=== PATIENT | male | born 1975 | race African-American/Black ===

== ENCOUNTER 2017-07-09 19:19 | Observation (INO) | payer BC ==
[2017-07-09 19:45] LABS: BASOPHILS # (AUTO) 0.1 X10^3/uL (0.0-0.1); BASOPHILS % (AUTO) 1.4 % (0.2-1.0); EOSINOPHILS # (AUTO) 0.1 x10^3/uL (0.0-0.2); EOSINOPHILS % (AUTO) 0.8 % (0.9-2.9); HEMATOCRIT 38.2 % (42.0-54.0); HEMOGLOBIN 12.9 g/dL (13.5-18.0); LYMPHOCYTES # (AUTO) 2.6 X10^3/uL (1.3-2.9); LYMPHOCYTES % (AUTO) 39.1 % (21.0-51.0); MEAN CORPUSCULAR HGB CONC 33.7 g/dL (33.0-35.0); MEAN CORPUSCULAR VOLUME 89.1 fL (80.0-100.0); MEAN PLATELET VOLUME 8.8 fL (7.4-11.0); MONOCYTES # (AUTO) 0.5 x10^3/uL (0.3-0.8); MONOCYTES % (AUTO) 8.1 % (0.0-13.0); NEUTROPHILS # (AUTO) 3.3 x10^3/uL (2.2-4.8); NEUTROPHILS % (AUTO) 50.6 % (42.0-75.0); PLATELET COUNT 233 X10^3/uL (150.0-450.0); RED BLOOD COUNT 4.29 X10^6/uL (4.7-6.0); RED CELL DISTRIBUTION WIDTH 14.3 % (11.6-16.5); WHITE BLOOD COUNT 6.6 X10^3/uL (3.6-10.0)
--- NOTE | 2017-07-09 19:47 | DR.GENAD ---
HPI - PCP Primary Care Physician: SERJIO - HPI Comment HPI Comment: CHEST PAIN GETTING WORSE TONIGHT. NO FEVER. - Complaint/Symptoms Chief Complaint Doctors Comments: INCREASING SOB AND CHERST PAIN TIMES 3 DAYS. DENIES PRODUCTIVE COUGH. Chief Complaint:: CP AND SOB FOR 3 DAYS - Nurses notes reviewed Nurses Notes Review: Yes - Source History Provided: Patient - Mode of Arrival Mode of Arrival: EMS - Timing Onset of Chief Complaint: 07/06/17 Came on: Suddenly - Duration Duration: Constant Duration: Days - Severity Severity: Moderate PMH - PMH Past Medical History: Yes Past Medical History: Hypertension Past Surgical History: Yes Past Surgical History Comment: BACK - Family History History of Family Medical Conditions: Yes Family Medical History: ID, Sudden Cardiac - Social History Type of Tobacco Use: None Does any household member use tobacco: No Alcohol Use: None Do you use any recreational Drugs:: No Lives With: Family Lives Where: Home - infectious screening In the last 2 months have you had wt loss of >10#?: NO Have you had fever, night sweats or hemotysis?: No Have you traveled outside the country in the last 6 months?: No Isolation: Standard ROS - Review of Systems Constitutional: Weakness, Fatigue. negative: Chills, Fever Eyes: No Symptoms Reported. negative: Eye Pain, Discharge ENTM: No Symptoms Reported. negative: Ear Discharge, Nose Discharge, Nose Congestion, Throat Pain Respiratoy: Short of Breath. negative: Productive Cough, Non-Productive Cough, Wheezing, Hemoptysis Cardiovascular: Chest Pain. negative: Edema, Palpitations Gastrointestinal/Abdominal: Abdominal Pain, Nausea. negative: Vomiting Genitourinary: No Symptoms Reported. negative: Dysuria, Frequency, Hematuria Neurological: Weakness. negative: Headache, Dizziness Musculoskeletal: Muscle Pain Integumentary: No Symptoms Reported Hematologic/Lymphatic: No Symptoms Reported Endocrine: No Symptoms Reported All Other Systems: Reviewed and Negative PE - Vital Signs Vitals: Temperature 98.3 F Pulse Rate 65 Respiratory Rate 18 Blood Pressure 126/89 O2 Sat by Pulse Oximetry 99 - General Limitations: No Limitations General Appearance: Alert - Head Head Exam: Normal Inspection - Eyes Eye exam: Normal Appearance - ENT ENT Exam: Normal External Ear Exam External Ear Exam: Normal External Inspection TM/Canal Exam: Bilateral Normal Nose Exam: Normal Nose Exam Mouth Exam: Normal Inspection Throat Exam: Normal Inspection - Neck Neck Exam: Trachea Midline - Chest Chest Inspection: Symmetric Chest Wall Rise - Respiratory Respiratory Exam: Normal Lung Sounds Bilat Respiratory Exam: Bilateral Clear to Auscultation - Cardiovascular Cardiovascular Exam: Regular Rate, Normal Rhythm, Normal Heart Sounds - Abdominal Exam Abdominal Exam: Normal Bowel Sounds, Soft. negative: Tenderness - Extremities Extremities Exam: Normal Inspection - Back Back Exam: Normal Inspection - Neurologic Neurological Exam: Alert, Oriented X3 - Psychiatric Psychiatric Exam: Normal Affect, Normal Mood - Skin Skin Exam: Normal Color MDM - Additional Information Additional Information Obtained From: Family - Differential Diagnosis Differential Diagnosis: CHEST PAIN, RESPIRATORY DISTRESS, GASTRITIS, ESOPHAGITIS , ID, PNEUMONIA Course - Treatment Treatment: SEE ORDERS - Consultation Consultation Comments: DISCUSS PATIENT WITH DR. BASSETT. HE WILL ADMIT PATIENT. - Education/Counseling Education/Counseling: Patient, Family, Education Educated On: Treatment, Diagnosis ROR - Labs Reviewed Laboratory Results Reviewed?: Yes Result Diagrams: 07/10/17 04:30 07/10/17 04:30 Laboratory: WBC 6.6 X10^3/uL (3.6-10.0) 07/09/17 19:37 RBC 4.29 X10^6/uL (4.7-6.0) L 07/09/17 19:37 Hgb 12.9 g/dL (13.5-18.0) L 07/09/17 19:37 Hct 38.2 % (42.0-54.0) L 07/09/17 19:37 MCV 89.1 fL (80.0-100.0) 07/09/17 19:37 MCH 30.0 pg (27.0-34.0) 07/09/17 19:37 MCHC 33.7 g/dL (33.0-35.0) 07/09/17 19:37 RDW 14.3 % (11.6-16.5) 07/09/17 19:37 Plt Count 233 X10^3/uL (150.0-450.0) 07/09/17 19:37 MPV 8.8 fL (7.4-11.0) 07/09/17 19:37 Neut % 50.6 % (42.0-75.0) 07/09/17 19:37 Lymph % 39.1 % (21.0-51.0) 07/09/17 19:37 [place] % 8.1 % (0.0-13.0) 07/09/17 19:37 Eos % 0.8 % (0.9-2.9) L 07/09/17 19:37 Baso % 1.4 % (0.2-1.0) H 07/09/17 19:37 Neut # 3.3 x10^3/uL (2.2-4.8) 07/09/17 19:37 Lymph # 2.6 X10^3/uL (1.3-2.9) 07/09/17 19:37 [place] # 0.5 x10^3/uL (0.3-0.8) 07/09/17 19:37 Eos # 0.1 x10^3/uL (0.0-0.2) 07/09/17 19:37 Baso # 0.1 X10^3/uL (0.0-0.1) 07/09/17 19:37 Absolute Nucleated RBC 0.0 /100WBC 07/09/17 19:37 Sodium 143 mmol/L (136-145) 07/09/17 19:37 Corrected Sodium TNP 07/09/17 19:37 Potassium 3.2 mmol/L (3.5-5.1) L 07/09/17 19:37 Chloride 105 mmol/L (98-107) 07/09/17 19:37 Carbon Dioxide 32.3 mmol/L (21-32) H 07/09/17 19:37 BUN 14 mg/dL (7-18) 07/09/17 19:37 Creatinine 1.01 mg/dL (0.70-1.30) 07/09/17 19:37 Est GFR (MDRD) Af Amer > 60 (>60) 07/09/17 19:37 Est GFR (MDRD) Non-Af > 60 (>60) 07/09/17 19:37 Glucose 94 mg/dL (65-99) 07/09/17 19:37 Calcium 8.6 mg/dL (8.5-10.1) 07/09/17 19:37 Corrected Calcium TNP 07/09/17 19:37 Total Bilirubin 0.40 mg/dL (0.2-1.0) 07/09/17 19:37 AST 21 Units/L (15-37) 07/09/17 19:37 ALT 34 Units/L (12-78) 07/09/17 19:37 Alkaline Phosphatase 87 Units/L (46-116) 07/09/17 19:37 Creatine Kinase 273 Units/L (39-308) 07/09/17 19:37 CK-MB (CK-2) < 1.0 ng/mL (0-4.0) 07/09/17 19:37 CK/CKMB % Calc 0.4 % (<4) 07/09/17 19:37 Troponin I < 0.02 ng/mL (0-1.5) 07/09/17 19:37 B-Natriuretic Peptide 29.5 pg/mL (0-79) 07/09/17 19:37 Total Protein 7.4 g/dL (6.4-8.2) 07/09/17 19:37 Albumin 3.5 g/dL (3.4-5.0) 07/09/17 19:37 Globulin 3.9 g/dL (2.5-4.5) 07/09/17 19:37 Albumin/Globulin Ratio 0.9 Ratio (1.1-2.1) L 07/09/17 19:37 H. pylori IgG Antibody Positive (NEGATIVE) A 07/09/17 19:37 - XRAY XRAY Interpreted by: Radiologist XRAY Findings: REPORT DISCUSS WITH PATIENT. - EKG Rhythm: NSR (EKG NOTED) - Diagnosis Discharge Problem: Respiratory distress, Helicobacter pylori ab+ Chest pain Qualifiers: Chest pain type: precordial pain Qualified Code(s): R07.2 - Precordial pain - Discharge Plan Disposition: ADMITTED INPATIENT Condition: Stable - Follow ups/Referrals - Instructions
[2017-07-09 20:02] LABS: BLOOD UREA NITROGEN 14 mg/dL (7-18); CALCIUM 8.6 mg/dL (8.5-10.1); CARBON DIOXIDE 32.3 mmol/L (21-32); CHLORIDE 105 mmol/L (98-107); CREATININE 1.01 mg/dL (0.70-1.30); GLUCOSE 94 mg/dL (65-99); SODIUM 143 mmol/L (136-145); TROPONIN I < 0.02 ng/mL (0-1.5); eGFR BLACK RACES > 60 (>60); eGFR NON BLACK RACES > 60 (>60)
[2017-07-09 20:07] LABS: B-TYPE NATRIURETIC PEPTIDE 29.5 pg/mL (0-79)
[2017-07-09 20:15] LABS: ALANINE AMINOTRANSFERASE 34 Units/L (12-78); ALBUMIN 3.5 g/dL (3.4-5.0); ALKALINE PHOSPHATASE 87 Units/L (46-116); ASPARTATE AMINO TRANSFERASE 21 Units/L (15-37); CKMB % 0.4 % (<4); CREATINE KINASE 273 Units/L (39-308); CREATINE KINASE MB < 1.0 ng/mL (0-4.0); TOTAL PROTEIN 7.4 g/dL (6.4-8.2)
--- NOTE | 2017-07-09 20:18 | RAD ---
Chest PA and lateral Indication: Chest pain. Dyspnea. Findings: There is no pneumothorax, effusion or consolidation. Heart size is normal. Impression: No acute chest process. Reported By:
[2017-07-09] MEDS ORDERED: POTASSIUM CHLORIDE LIQ 20 MEQ UDC PO ONE (20:47)
[2017-07-09] MEDS ORDERED: PEPCID 20 MG IV PREMIX* 20 MG/50 ML BAG IV ONE ×2 (20:47→21:02)
[2017-07-09] MEDS ORDERED: POTASSIUM CHLORIDE LIQ 20 MEQ UDC ONE (21:02)
[2017-07-09] MEDS ORDERED: NS 250 ML IV 250 ML IV PRN (21:03)
[2017-07-09] MEDS ORDERED: ZOFRAN INJ 4 MG VIAL IVP PRN (23:47)
[2017-07-10 00:04] VITALS: BMI 25.7
[2017-07-10 02:29] LABS: CKMB % 0.5 % (<4); CREATINE KINASE 208 Units/L (39-308); CREATINE KINASE MB < 1.0 ng/mL (0-4.0); TROPONIN I < 0.02 ng/mL (0-1.5)
[2017-07-10 05:38] LABS: BASOPHILS # (AUTO) 0.1 X10^3/uL (0.0-0.1); BASOPHILS % (AUTO) 0.9 % (0.2-1.0); EOSINOPHILS # (AUTO) 0.1 x10^3/uL (0.0-0.2); EOSINOPHILS % (AUTO) 0.9 % (0.9-2.9); HEMATOCRIT 35.2 % (42.0-54.0); HEMOGLOBIN 12.2 g/dL (13.5-18.0); LYMPHOCYTES # (AUTO) 3.5 X10^3/uL (1.3-2.9); LYMPHOCYTES % (AUTO) 50.2 % (21.0-51.0); MEAN CORPUSCULAR HEMOGLOBIN 30.7 pg (27.0-34.0); MEAN CORPUSCULAR HGB CONC 34.7 g/dL (33.0-35.0); MEAN CORPUSCULAR VOLUME 88.6 fL (80.0-100.0); MEAN PLATELET VOLUME 9.8 fL (7.4-11.0); MONOCYTES # (AUTO) 0.6 x10^3/uL (0.3-0.8); MONOCYTES % (AUTO) 9.2 % (0.0-13.0); NEUTROPHILS # (AUTO) 2.7 x10^3/uL (2.2-4.8); NEUTROPHILS % (AUTO) 38.8 % (42.0-75.0); PLATELET COUNT 183 X10^3/uL (150.0-450.0); RED BLOOD COUNT 3.98 X10^6/uL (4.7-6.0); RED CELL DISTRIBUTION WIDTH 14.6 % (11.6-16.5)
[2017-07-10 05:45] LABS: ALANINE AMINOTRANSFERASE 29 Units/L (12-78); ALBUMIN 2.8 g/dL (3.4-5.0); ALKALINE PHOSPHATASE 71 Units/L (46-116); ASPARTATE AMINO TRANSFERASE 20 Units/L (15-37); BLOOD UREA NITROGEN 12 mg/dL (7-18); CARBON DIOXIDE 29.4 mmol/L (21-32); CHLORIDE 107 mmol/L (98-107); CHOL/HDL RATIO 3.3 (0.0-5.0); CHOLESTEROL 193 mg/dL (0-200); CREATININE 0.96 mg/dL (0.70-1.30); GLUCOSE 87 mg/dL (65-99); HDL CHOLESTEROL 58 mg/dL (40-60); SODIUM 142 mmol/L (136-145); TOTAL PROTEIN 6.1 g/dL (6.4-8.2); TRIGLYCERIDES 80 mg/dL (0-150); eGFR BLACK RACES > 60 (>60); eGFR NON BLACK RACES > 60 (>60)
[2017-07-10] MEDS ORDERED: TYLENOL 325 MG TAB PO PRN (07:52)
[2017-07-10 08:34] LABS: CKMB % 0.5 % (<4); CREATINE KINASE 211 Units/L (39-308); CREATINE KINASE MB < 1.0 ng/mL (0-4.0); TROPONIN I < 0.02 ng/mL (0-1.5)
[2017-07-10 10:03] VITALS: BP 129/82
--- NOTE | 2017-07-10 16:32 | DR.CARTERS ---
Short Stay Summary - Admission Date Date of Admission: 07/09/17 - Discharge Date Discharge Date: 07/10/17 - Admission Diagnoses (1) Chest pain Status: Acute (2) Respiratory distress Status: Acute (3) Helicobacter pylori (H. pylori) Status: Acute - Hospital Course Hospital Course: Mr. Graves is a 41 year old patient of ours who presented to the emergency room via EMS with reports of chest pain and shortness of breath. Patient reportd that symptoms started suddenly three days ago and have been constant since onset. Associated symptoms included abdominal pain, nausea, weakenss, fatigue and muscle pain. Lungs were clear to auscultation, bowel sounds normal in all quadrants. On arrival to er, vitals were 98.3, 65, 18, 99% RA, 126/89. Abnormal Labs include: RBC 4.29, Hgb 12.9, Hct 38.2, Potassium 3.2, Carbon Dioxide 32.3, A/G Ratio 0.9, H.Pylori Positive. Chest X-Ray reports No acute chest process. EKG reports Sinus Rhythm with rate of 56. He was given Pepcid 20mg IV x1, Potassium 40meq po x1, NS @20ml/hr, Zofran 4mg IV x1 in the er with no relief of symptoms. We admitted as observation for further treatment and evaluation. We will order serial cardiac enzymes and EKG's and placed on continous cardiac rehabilitation specialist. On day 2 of stay, Patient was alert and oriented on morning rounds. He was sitting up in chair with at bedside. He had no complaints upon rounds. He denied chest pain , shortness of breath, and abdominal pain. Lungs are clear to auscultation. Vitals this am are 97.6-53-22-99%-122/74. CBC reports WBC 7.0, RBC 3.98, HGB 12.2, HCT 35.2. CMP wnl except calcium 8.0, total protein 6.1, albumin 2.8, ldl cholesterol 119. cardiac enzymes wnl. ekg normal. We planned for discharge. Instructions for medications and follow up were discussed with patient and spouse. They both verbalized understanding. Patient was discharged home with family in stable condition. He was given new prescriptions for pepcid 20mg po bid, protonix 40mg po daily, and gi cocktail 15ml qid. He has an appointment to see us in our office on 07/17/17. - Discharge Medications Discharge Medications: Azilsartan Med/Chlorthalidone [Edarbyclor 40-12.5 mg Tablet] 1 ea PO DAILY 07/10 [History] Famotidine [Pepcid Tab 20 mg] 20 mg PO BID #60 tab 07/10/17 [Rx] Gi Cocktail [LEVSIN/Maalox/Lidoc Visc (GI COCKTAIL) *] 15 ml PO QID #90 ml 07/10 [Rx] Montelukast Sodium [SINGULAIR TAB 10 MG *] 10 mg PO DAILY 07/10/17 [History] Pantoprazole Sodium 40 mg [Protonix Tab 40 mg] 40 mg PO DAILY #30 tab 07/10/17 [ Rx] - Discharge Plan Disposition: 01 HOME, SELF-CARE Condition: Stable Prescriptions: Famotidine [Pepcid Tab 20 mg] 20 mg PO BID #60 tab Gi Cocktail [LEVSIN/Maalox/Lidoc Visc (GI COCKTAIL) *] 15 ml PO QID #90 ml Pantoprazole Sodium 40 mg [Protonix Tab 40 mg] 40 mg PO DAILY #30 tab - Follow up/Referrals Follow up/Referrals: MARLA VARGHESE [Nurse Practitioner] - 07/17/17 11:30 am - Instructions Instructions: Chest Pain Observation Additional Instructions: ACTIVITY TOLERATED. DIET TOLERATED. Forms: Patient Portal
== END 2017-07-10 10:00 | disposition home or self-care (01) ==
LOC: ER 19:37 → MED/SURG 23:02
PROVIDERS: ADMIT Internal Medicine; ATTEND Internal Medicine
DX: R07.89 Other chest pain (principal); R06.02 Shortness of breath; B96.81 Helicobacter pylori [H. pylori] as the cause of diseases classified elsewhere; R06.00 Dyspnea, unspecified; D64.89 Other specified anemias; I10 Essential (primary) hypertension; R53.1 Weakness; R94.31 Abnormal electrocardiogram [ECG] [EKG]; R10.84 Generalized abdominal pain; R53.83 Other fatigue
CPT/HCPCS: 36415; 71020; 80053; 80061; 82550; 82553; 83880; 84132; 84484; 85025; 85610; 86677; 93005; 94760; 96365; 96374; 99284; A4216; A4222; S0028; G0378; J2405

== ENCOUNTER 2017-07-21 21:17 | Emergency (ER) | payer BC ==
[2017-07-21 21:25] VITALS: BP 117/79; BMI 24.5
--- NOTE | 2017-07-21 22:00 | DR.GENAD ---
HPI - PCP Primary Care Physician: booker - HPI Comment HPI Comment: PATIENT CURRENTLY UNDERGOING CHEST PAIN WORK UP. PENDING CAROTIC US , ECHOCARDIOGRAM AND NEUCLEA STRESS TEST THIS SUNDAY. NO FEVER. TONIGH AT [facility] , PATIENT HAD SYNCOPAL EPISODE. PATIENT IS COMPLAINING OF HEADACHE. - Complaint/Symptoms Chief Complaint Doctors Comments: CHEST FOR SEVERAL WEAKS. TONIGHT SYNCOPAL EPISODE IN [facility]. Chief Complaint:: chest pain midsternal, sob - Nurses notes reviewed Nurses Notes Review: Yes - Source History Provided: Patient - Mode of Arrival Mode of Arrival: EMS - Timing Onset of Chief Complaint: 07/21/17 Came on: Suddenly - Duration Duration: Since Onset Duration: Minutes - Severity Severity: Moderate PMH - PMH Past Medical History: Yes Past Medical History: Hypertension Past Surgical History: Yes Surgical History: Ortho Surgery Past Surgical History Comment: back surgery - Family History History of Family Medical Conditions: Yes Family Medical History: Diabetes Mellitus, Hypertension - Social History Do you use any recreational Drugs:: No - infectious screening Have you traveled outside the country in the last 6 months?: No ROS - Review of Systems Constitutional: Weakness, Fatigue. negative: Chills, Fever Eyes: No Symptoms Reported. negative: Eye Pain, Discharge ENTM: No Symptoms Reported. negative: Ear Pain, Nose Discharge, Nose Congestion , Throat Pain Respiratoy: Short of Breath. negative: Productive Cough, Non-Productive Cough, Wheezing, Hemoptysis Cardiovascular: Chest Pain, Syncope. negative: Edema, Palpitations Gastrointestinal/Abdominal: Nausea. negative: Abdominal Pain Genitourinary: No Symptoms Reported. negative: Dysuria, Frequency, Hematuria Neurological: Headache, Weakness, Dizziness Musculoskeletal: Muscle Pain Integumentary: No Symptoms Reported Hematologic/Lymphatic: No Symptoms Reported Endocrine: No Symptoms Reported All Other Systems: Reviewed and Negative PE - Vital Signs Vitals: Temperature 98.8 F Pulse Rate 82 Respiratory Rate 18 Blood Pressure [Right Arm] 129/82 Blood Pressure 117/79 O2 Sat by Pulse Oximetry 99 - General Limitations: No Limitations General Appearance: Alert - Head Head Exam: Normal Inspection - Eyes Eye exam: Normal Appearance - ENT ENT Exam: Normal External Ear Exam External Ear Exam: Normal External Inspection TM/Canal Exam: Bilateral Normal Nose Exam: Normal Nose Exam Mouth Exam: Normal Inspection Throat Exam: Normal Inspection - Neck Neck Exam: Trachea Midline - Chest Chest Inspection: Symmetric Chest Wall Rise - Respiratory Respiratory Exam: Normal Lung Sounds Bilat Respiratory Exam: Bilateral Clear to Auscultation - Cardiovascular Cardiovascular Exam: Regular Rate, Normal Rhythm, Normal Heart Sounds - Abdominal Exam Abdominal Exam: Normal Bowel Sounds, Soft. negative: Tenderness - Extremities Extremities Exam: Normal Inspection - Back Back Exam: Normal Inspection - Neurologic Neurological Exam: Alert, Oriented X3, CN II-XII Intact, Normal Gait, Reflexes Normal. negative: Motor Sensory Deficit - Psychiatric Psychiatric Exam: Normal Affect, Normal Mood - Skin Skin Exam: Normal Color [facility] - Additional Information Additional Information Obtained From: Family - Differential Diagnosis Differential Diagnosis: CHEST PAIN, SYNCOPAL EPISODE, DE, CVA, UTI, Course - Treatment Treatment: SEE ORDERS. - Education/Counseling Education/Counseling: Patient, Family, Education Educated On: Treatment, Diagnosis, Needs for Follow Up ROR - Labs Reviewed Laboratory Results Reviewed?: Yes Result Diagrams: 07/21/17 22:40 07/21/17 22:40 Laboratory: WBC 7.0 X10^3/uL (3.6-10.0) 07/21/17 22:40 RBC 4.20 X10^6/uL (4.7-6.0) L 07/21/17 22:40 Hgb 12.8 g/dL (13.5-18.0) L 07/21/17 22:40 Hct 37.7 % (42.0-54.0) L 07/21/17 22:40 MCV 89.6 fL (80.0-100.0) 07/21/17 22:40 MCH 30.5 pg (27.0-34.0) 07/21/17 22:40 MCHC 34.0 g/dL (33.0-35.0) 07/21/17 22:40 RDW 14.3 % (11.6-16.5) 07/21/17 22:40 Plt Count 230 X10^3/uL (150.0-450.0) 07/21/17 22:40 MPV 9.1 fL (7.4-11.0) 07/21/17 22:40 Neut % 55.5 % (42.0-75.0) 07/21/17 22:40 Lymph % 34.9 % (21.0-51.0) 07/21/17 22:40 [place] % 8.0 % (0.0-13.0) 07/21/17 22:40 Eos % 0.5 % (0.9-2.9) L 07/21/17 22:40 Baso % 1.1 % (0.2-1.0) H 07/21/17 22:40 Neut # 3.9 x10^3/uL (2.2-4.8) 07/21/17 22:40 Lymph # 2.5 X10^3/uL (1.3-2.9) 07/21/17 22:40 [place] # 0.6 x10^3/uL (0.3-0.8) 07/21/17 22:40 Eos # 0.0 x10^3/uL (0.0-0.2) 07/21/17 22:40 Baso # 0.1 X10^3/uL (0.0-0.1) 07/21/17 22:40 Absolute Nucleated RBC 0.1 /100WBC 07/21/17 22:40 Sodium 142 mmol/L (136-145) 07/21/17 22:40 Corrected Sodium TNP 07/21/17 22:40 Potassium 3.0 mmol/L (3.5-5.1) L* 07/21/17 22:40 Chloride 106 mmol/L (98-107) 07/21/17 22:40 Carbon Dioxide 29.0 mmol/L (21-32) 07/21/17 22:40 BUN 15 mg/dL (7-18) 07/21/17 22:40 Creatinine 1.04 mg/dL (0.70-1.30) 07/21/17 22:40 Est GFR (MDRD) Af Amer > 60 (>60) 07/21/17 22:40 Est GFR (MDRD) Non-Af > 60 (>60) 07/21/17 22:40 Glucose 93 mg/dL (65-99) 07/21/17 22:40 Calcium 8.5 mg/dL (8.5-10.1) 07/21/17 22:40 Corrected Calcium 9.1 mg/dL (8.5-10.1) 07/21/17 22:40 Total Bilirubin 0.20 mg/dL (0.2-1.0) 07/21/17 22:40 AST 16 Units/L (15-37) 07/21/17 22:40 ALT 25 Units/L (12-78) 07/21/17 22:40 Alkaline Phosphatase 69 Units/L (46-116) 07/21/17 22:40 Creatine Kinase 147 Units/L (39-308) 07/21/17 22:40 CK-MB (CK-2) < 1.0 ng/mL (0-4.0) 07/21/17 22:40 CK/CKMB % Calc 0.7 % (<4) 07/21/17 22:40 Troponin I < 0.02 ng/mL (0-1.5) 07/21/17 22:40 Total Protein 6.7 g/dL (6.4-8.2) 07/21/17 22:40 Albumin 3.3 g/dL (3.4-5.0) L 07/21/17 22:40 Globulin 3.4 g/dL (2.5-4.5) 07/21/17 22:40 Albumin/Globulin Ratio 1.0 Ratio (1.1-2.1) L 07/21/17 22:40 - XRAY XRAY Interpreted by: Radiologist XRAY Findings: REPORT DISCUSS WITH PATIENT. AND . - EKG [place]: Normal (EKG NOTED) - Diagnosis Discharge Problem: Hypokalemia Chest pain Qualifiers: Chest pain type: precordial pain Qualified Code(s): R07.2 - Precordial pain Syncope Qualifiers: Syncope type: unspecified Qualified Code(s): R55 - Syncope and collapse - Discharge Plan Disposition: 01 HOME, SELF-CARE Condition: Stable - Follow ups/Referrals Follow ups/Referrals: Luisito Hernández [Primary Care Provider] - 3 days - Instructions Instructions: Chest Pain Observation, Syncope, [id number] Additional Instructions: RETURN TO ED IF WORSE.
--- NOTE | 2017-07-21 22:43 | RAD ---
AP Chest Indication: Chest pain with shortness of breath Comparison: 07/09/2017 Findings: The trachea is midline. The cardiac silhouette is unremarkable. The lungs are clear without focal i nfiltrate or effusion. The bony thorax is unremarkable. IMPRESSION: 1. No acute cardiopulmonary abnormality. Reported By:
--- NOTE | 2017-07-21 22:49 | CT ---
CT brain without contrast Indication: Syncope Comparison: None available Technique: Multiple axial images of the brain were obtained from the skull base to the vertex without administra tion of IV contrast. Coronal and sagittal images were also provided. Radiation dose reduction techniques were performed utilizing adjustment for MA/kVP based on patient body size. Findings: No acute intraparenchymal hemorrhage or mass can be identified. No extra-axial fluid collections are seen. No alteration in the attenuation of the brain parenchyma can be identified to suggest acute o r subacute ischemic change. The ventricular system is symmetric and nondilated. The extracranial st ructures are grossly unremarkable. IMPRESSION: 1. No acute intracranial process is identified. Reported By:
[2017-07-21 22:57] LABS: BASOPHILS # (AUTO) 0.1 X10^3/uL (0.0-0.1); BASOPHILS % (AUTO) 1.1 % (0.2-1.0); EOSINOPHILS % (AUTO) 0.5 % (0.9-2.9); HEMATOCRIT 37.7 % (42.0-54.0); HEMOGLOBIN 12.8 g/dL (13.5-18.0); LYMPHOCYTES # (AUTO) 2.5 X10^3/uL (1.3-2.9); LYMPHOCYTES % (AUTO) 34.9 % (21.0-51.0); MEAN CORPUSCULAR HEMOGLOBIN 30.5 pg (27.0-34.0); MEAN CORPUSCULAR VOLUME 89.6 fL (80.0-100.0); MEAN PLATELET VOLUME 9.1 fL (7.4-11.0); MONOCYTES # (AUTO) 0.6 x10^3/uL (0.3-0.8); NEUTROPHILS # (AUTO) 3.9 x10^3/uL (2.2-4.8); NEUTROPHILS % (AUTO) 55.5 % (42.0-75.0); PLATELET COUNT 230 X10^3/uL (150.0-450.0); RED CELL DISTRIBUTION WIDTH 14.3 % (11.6-16.5)
[2017-07-21 23:21] LABS: ALANINE AMINOTRANSFERASE 25 Units/L (12-78); ALBUMIN 3.3 g/dL (3.4-5.0); ALKALINE PHOSPHATASE 69 Units/L (46-116); ASPARTATE AMINO TRANSFERASE 16 Units/L (15-37); BLOOD UREA NITROGEN 15 mg/dL (7-18); CALCIUM 8.5 mg/dL (8.5-10.1); CHLORIDE 106 mmol/L (98-107); CKMB % 0.7 % (<4); COR CA(FOR HYPOALB) 9.1 mg/dL (8.5-10.1); CREATINE KINASE 147 Units/L (39-308); CREATINE KINASE MB < 1.0 ng/mL (0-4.0); CREATININE 1.04 mg/dL (0.70-1.30); GLUCOSE 93 mg/dL (65-99); SODIUM 142 mmol/L (136-145); TOTAL PROTEIN 6.7 g/dL (6.4-8.2); TROPONIN I < 0.02 ng/mL (0-1.5); eGFR BLACK RACES > 60 (>60); eGFR NON BLACK RACES > 60 (>60)
[2017-07-21] MEDS ORDERED: POTASSIUM CHLORIDE LIQ 20 MEQ UDC ONE (23:51)
[2017-07-21] MEDS ORDERED: POTASSIUM CHLORIDE LIQ 20 MEQ UDC PO ONE (23:58)
== END 2017-07-22 00:25 | disposition home or self-care (01) ==
LOC: ER 21:17
DX: R07.2 Precordial pain (principal); E87.6 Hypokalemia; R55 Syncope and collapse
CPT/HCPCS: 36415; 70450; 71010; 80053; 82550; 82553; 84484; 85025; 93005; 93010; 96365; 99283

== ENCOUNTER → 2018-03-19 | Outpatient (CLI) | payer BC ==
--- NOTE | 2018-03-19 11:27 | MRI ---
MRI brain with and without contrast Indication: Ataxia, cluster headaches, dizziness and giddiness Comparison: CT 02/26/2018 Technique: Multiplanar multi-sequence MRI of the brain was obtained with and without contrast Findings: The midline structures are unremarkable. There is no intracranial hemorrhage or restricted diffusion to suggest acute infarction. No focal or generalized edema, extra-axial collection, hydrocephalus or mass is identified. The major intracranial flow voids are present and unremarkable. Postcontrast emani ges demonstrate no abnormal dural or parenchymal enhancement. The paranasal sinuses and mastoid air c ells are clear. The orbits and remaining extracranial structures are unremarkable. IMPRESSION: Unremarkable MRI of the brain with and without contrast. Reported By:
== END ==
LOC: RAD 09:19
PROVIDERS: ATTEND Internal Medicine
DX: R27.0 Ataxia, unspecified (principal); G44.001 Cluster headache syndrome, unspecified, intractable; R42 Dizziness and giddiness; H53.8 Other visual disturbances
CPT/HCPCS: 70553